=== PATIENT | male | born 2000 | race Two or more races ===

== ENCOUNTER 2024-08-04 21:17 | Emergency (ER) | payer MEDICAID, OTHER ==
[~2024-08-04] VITALS: Ht 170.2 cm; Wt 76.3 kg
[2024-08-04] MEDS: DexAMETHasone SOD PHOS 10MG/1ML VIAL INJ IM ONE (21:41)
[2024-08-04 21:45] VITALS: TEMP 98.3
--- NOTE | 2024-08-04 21:59 | DVH ---
CHEST RADIOGRAPH Indication: Shortness of breath Technique: Single frontal view of the chest was obtained COMPARISON: None FINDINGS: Lines and Tubes: None Lungs: Clear Pleura: No effusion. No pneumothorax. Cardiomediastinal contours: Unremarkable Bones: Unremarkable IMPRESSION: No abnormality.
[2024-08-04 22:00] VITALS: BP 120/72; PULSE 74
[2024-08-04 22:06] VITALS: RESP 20; O2SAT 100
[2024-08-04] MEDS: IPRATROPIUM BROM 0.5 MG/2.5ML INH SOL NEB ONE (22:08)
[2024-08-04] MEDS: ALBUTEROL SULF 2.5 MG/0.5ML(0.5%) NEB SOLN NEB ONE (22:08)
--- NOTE | 2024-08-04 22:44 | ED.PDOC ---
HPI Allergic reaction HPI Comments This patient is an otherwise healthy 23-year-old male who arrives the ED today via EMS for evaluation of allergic rash concerns status post taking Tylenol with ibuprofen. patient states he consumes some Tylenol with aspirin and approximately 15 minutes after consumption started to develop facial redness, eye swelling and throat tightening. Patient was given 50 mg of Benadryl in route after mom dispensed at at the pin at the [employer]. Mom states the EpiPen had minimal response. Patient's vital signs were stable on arrival. Patient was on 6 L of O2 and satting at 100%. Chief Complaint: Allergic Reaction Time Seen by MD: 21:29 Primary Care Provider: MARK Lancaster Notes: Nurses Notes, Director Of Physician Practices Notes Allergies: Coded Allergies: NSAIDs (Verified Allergy, Unknown, 08/04/24) Information Source: Patient, Relative (Mother), Emergency Med Personnel Mode of Arrival: EMS Severity: Moderate Rash: Moderate SOB: Moderate Difficulty swallowing: Moderate Pruritus: Mild Timing: Minutes Duration: Since onset Prehospital treatment: Treatment Location: Face, Mouth, Throat Exposed to: Medication Developed: Difficult Swallowing, Facial Swelling, Rash, Throat Swelliing History of: None (Aspirin allergy) Modyifying Factors: Diphenhydramine Past Medical History PAST MEDICAL HISTORY: Denies Past Medical History (Other): patient has a history of aspirin allergies Surgical History: Hernia Repair Family History Family History: Unknown Social History Smoker: Non-Smoker Alcohol: Denies ETOH Use Drugs: Denies Drug Use Lives In: Home Constitutional: denies: chills, diaphoresis, fatigue, fever, malaise, sweats, weakness, others EENTM: reports: others ( throat swelling sensation. Bilateral eye swelling); denies: blurred vision, double vision, ear bleeding, ear discharge, ear drainage, ear pain, ear ringing, eye pain, eye redness, hearing loss, mouth pain, mouth swelling, nasal discharge, nose bleeding, nose congestion, nose pain, photophobia, tearing, throat pain, throat swelling, voice changes Respiratory: denies: cough, hemoptysis, orthopnea, SOB at rest, shortness of breath, SOB with excertion, stridor, wheezing, others Cardiovascular: denies: chest pain, dizzy spells, diaphoresis, Dyspnea on exertion, edema, irregular heart beat, left arm pain, lightheadedness, palpitations, PND, syncope, others Gastrointestinal: denies: abdomen distended, abdominal pain, blood streaked bowels, constipated, diarrhea, dysphagia, difficulty swallowing, hematemesis, melena, nausea, poor appetite, poor fluid intake, rectal bleeding, rectal pain, vomiting, others Genitourinary: denies: burning, dysuria, flank pain, frequency, hematuria, incontinence, penile discharge, penile sore, pain, testicle pain, testicle swelling, urgency, others Neurological: denies: dizziness, fainting, headache, left sided numbness, left sided weakness, numbness, paresthesia, pre-existing deficit, right sided numbness, right sided weakness, seizure, speech problems, tingling, tremors, weakness, others Musculoskeletal: denies: back pain, gout, joint pain, joint swelling, muscle pain, muscle stiffness, neck pain, others Integumetry: reports: rash ( Facial rash extending into the chest.); denies: bruises, change in color, change in hair/nails, dryness, laceration, lesions, lumps, wounds, others Allergic/Immunocompromised: denies: Difficulty Healing, Frequent Infections, Hives, Itching, others Hematologic/Lymphatic: denies: anemia, blood clots, easy bleeding, easy brui sing, swollen glands, others Endocrine: denies: excessive hunger, excessive sweating, excessive thirst, ex cessive urination, flushing, intolerance to cold, intolerance to heat, unexplained weight gain, unexplained weight loss, others Psychiatric: denies: anxiety, bipolar disorder, depression, hopeless, panic disorder, schizophrenia, sleepless, suicidal, others Physical Exam General Appearance: Moderate Distress ( [id number] distress due to allergic rash in concerns.), Normal HEENT: Other ( Patient reveals bilateral moderate eyelid swelling. Tongue does not appear swollen nor do lips. Patient complains of some throat tightness. Donn rash noted to face extending into chest.) Neck: Full Range of Motion, Non-Tender, Normal, Normal Inspection Respiratory: Chest Non-Tender, Lungs Clear, No Accessory Muscle Use, No Respiratory Distress, Normal Breath Sounds Cardiovascular: No Edema, No JVD, No Murmur, No Gallop, Normal Peripheral Pulses, Regular Rate/Rhythm Breast Exam: Deferred Gastrointestinal: No Organomegaly, Non Tender, No Pulsatile Mass, Normal Bowel Sounds, Soft Genitalia: Deferred Pelvic: Deferred Rectal: Deferred Extremities: No calf tenderness, Normal capillary refill, Normal inspection, Normal range of motion, Non-tender, No pedal edema Neurologic: Alert, No Motor Deficits, Normal Affect, Normal Mood, No Sensory Deficits Cerebellar Function: Normal Reflexes: Normal Skin: Dry, Normal Color, Warm Lymphatic: No Adenopathy Was a procedure done? Was a procedure done?: No Differential diagnosis (all) Differential Diagnosis: Anaphylaxis, Angioedema, Drug Reaction, Urticaria X-Ray, Labs, Meds, VS Vital Signs Date Time Temp Pulse Resp B/P (MAP) Pulse Ox O2 Delivery O2 Flow Rate FiO2 08/04/24 22:06 20 100 Room Air* 0 21 08/04/24 22:00 74 19 120/72 (88) 100 08/04/24 21:45 98.3 71 16 112/45 (67) 100 98.3 08/04/24 21:35 Simple Mask* 6 50 08/04/24 21:23 98.7 79 16 129/78 (95) 100 08/04/24 21:23 16 100 Nasal Cannula* 6 44 Current Medications Medications (Trade) Dose Ordered Sig/Pablo Route Start Time Stop Time Status Last Admin Dexamethasone Sodium Phosphate (Decadron Injection) 10 mg ONCE ONCE IM 08/04/24 21:45 08/04/24 21:46 DC 08/04/24 21:41 Albuterol (Ventolin Medneb) 2.5 mg ONCE ONCE NEB 08/04/24 21:45 08/04/24 21:46 DC 08/04/24 22:08 Ipratropium [place] (Atrovent Medneb) 0.5 mg ONCE ONCE NEB 08/04/24 21:45 08/04/24 21:46 DC 08/04/24 22:08 X-Ray, Labs, Meds, VS Comment Patient responded well to treatment rendered in the ED today. Chest x-ray was unremarkable for any acute intrapulmonary process. Patient's symptoms were nearly resolved at time of discharge. Advised patient that the aspirin component of the medication he took today was the event in culprit. Advised patient moving forward to not utilize any aspirin-containing products. Time of 1ST Reevaluation: 22:43 Reevaluation 1ST: Improved Consultation: PCP Patient Education/Counseling: Diagnosis, Treatment Family Education/Counseling: Diagnosis, Treatment Departure 1 Departure Time of Disposition: 22:44 Impression: Primary Impression: Aspirin allergy Disposition: 01 HOME / SELF CARE / HOMELESS Condition: Stable Additional Instructions: Advised patient and mom to not utilize any aspirin-containing products moving forward. Discharged With: Self, Relative (Mother) Critical Care Note Critical Care Time?: No Stability Stability form required: No Heart Score Heart Score: Heart Score Response (Comments) Value History N/A 0 EKG N/A 0 Age N/A 0 Risk Factors N/A 0 Troponin N/A 0 Total 0 [facility] CRAWFORD PAC Aug 04, 2024 22:44
== END 2024-08-04 22:47 | disposition home or self-care (01) ==
LOC: ER 21:17 → EDBD 21:17 → ER 22:47
DX: R21 Rash and other nonspecific skin eruption (principal); R06.02 Shortness of breath; Z88.6 Allergy status to analgesic agent; Z98.890 Other specified postprocedural states
CPT/HCPCS: 71045; 94640; 96372; 99283; J1100